=== PATIENT | female | born 1935 | race Caucasian/White ===

== ENCOUNTER 2017-01-11 12:43 | Observation (INO) | payer OTHER, BC ==
--- NOTE | 2017-01-11 12:57 | CPEKG ---
Heart Rate: 84 RR Interval: 714 P-R Interval: 176 QRSD Interval: 118 QT Interval: 368 QTC Interval: 436 P [place]: 81 QRS [place]: -33 T Wave [place]: 98 EKG Severity - ABNORMAL ECG - EKG Impression: SINUS RHYTHM EKG Impression: PROBABLE LEFT ATRIAL ABNORMALITY EKG Impression: INCOMPLETE LEFT BUNDLE BRANCH BLOCK EKG Impression: LVH WITH SECONDARY REPOLARIZATION ABNORMALITY Electronically Signed By: Neisha Taylor 11-Jan-2017 15:22:19
--- NOTE | 2017-01-11 13:06 | EDPHY ---
H & P Stated Complaint: cp starting last night, left anterior moving substernal, nausa Time Seen by Provider: 01/11/17 13:00 - Personal History Current Tetanus/Diphtheria Vaccine: Unsure Current Tetanus Diphtheria and Acellular Pertussis (TDAP): Unsure - Medical/Surgical History Hx Asthma: No Hx Chronic Respiratory Disease: No Hx Diabetes: No Hx Cardiac Disease: Yes Hx Renal Disease: No Hx Cirrhosis: No Hx Alcoholism: No Hx HIV/AIDS: No Hx Splenectomy or Spleen Trauma: No Other PMH: pmh: anxiety, htn, high cholesterol. psh: none - Social History Smoking Status: Never smoked Constitutional: Initial Vital Signs Temperature (C) 36 C 01/11/17 12:53 Heart Rate 81 01/11/17 12:53 Respiratory Rate 16 01/11/17 12:53 Blood Pressure 178/86 H 01/11/17 12:53 O2 Sat (%) 98 01/11/17 12:53 O2 Delivery Mode Room Air O2 (L/minute) 2 Medical Decision Making - Diagnostics Imaging Results: Imaging Impressions Chest X-Ray 01/11/17 13:31 Impression: 1. Hyperexpanded lungs suggestive of underlying COPD. 2. No active cardiopulmonary disease seen. ED Course/Re-evaluation: CHIEF COMPLAINT: Chest pain HISTORY OF PRESENT ILLNESS: This patient is a 81 y/o female complaining of left-sided chest pain onset around 6:00am this morning. At 7:00, she took her blood pressure medication and noted she was more hypertensive than usual around 150/90. She went back to sleep and woke around 9, and her chest pain had moved to her sternal area. A repeat blood pressure was 169/101. She called her primary care provider's office , and they recommended presentation to emergency department. She endorses nausea which resolved after Zofran administration in the ambulance. She has been on a heart monitor in the past following a fall due to syncope. She recently moved to [place] from [place], and has not followed up with a local paralegal instructor since moving. She denies headache, fever, shortness of breath, vomiting, urinary or bowel complaints, or other associated symptoms. REVIEW OF SYSTEMS: A 10 point review of systems was performed and is negative with the exception of the elements mentioned in the history of present illness. PHYSICAL EXAM: HR, BP, O2 Sat, RR. Temp noted General Appearance: Alert, well hydrated, appropriate, and non-toxic appearing. Head: Atraumatic without scalp tenderness or obvious injury Eyes: Pupils equal, round, reactive to light and accommodation, EOMI, no trauma , no injection. Ears: Clear bilaterally, no perforation, normal landmarks Nose: Atraumatic, no rhinorrhea, clear. Throat: There is no erythema or exudates, no lesions, normal tonsils, mucus membranes moist. Neck: Supple, 2+ carotid upstroke, nontender, no lymphadenopathy. Respiratory: No retractions, no distress, no wheezes, and no accessory muscle use. Lungs are clear to auscultation bilaterally. Cardiovascular: Regular rate and rhythm, no murmurs, rubs, or gallops. Bilateral carotid, radial, dorsalis pedis, and posterior tibial pulses intact. Good capillary refill all extremities. Gastrointestinal: Abdomen is soft, nontender, non-distended, no masses, no rebound, no guarding, no peritoneal signs. Musculoskeletal: Normal active ROM of all extremities, atraumatic. Neurological: Alert, appropriate, and interactive. The patient has normal DTRs and non-focal cranial nerves, motor, sensory, and cerebellar exam. Skin: No rashes, good turgor, no nodules on palpation. Past medical history: Anxiety, Hypertension, Hyperlipidemia, Migraines Past surgical history: Denies Family history: Noncontributory Social history: Recently moved from [place]. DIAGNOSTICS/PROCEDURES/CRITICAL CARE TIME: The 12 lead EKG was interpreted by myself. See hard copy and/or "tracemaster" electronic copy for interpretation. Sinus rhythm, rate 84. ALFREDO, LVH with secondary repolarization abnormality, incomplete LBBB DIFFERENTIAL DIAGNOSIS: The differential diagnosis for the patient's chest pain included but was not limited to myocardial ischemia, pulmonary embolus, chest wall pain, pleural inflammation, and pulmonary infectious causes. MEDICAL DECISION MAKIN81 y/o female presents with chest pain onset this morning around 6am, initially left-sided moving to substernal. Exam unremarkable. Plan for chest x-ray, EKG, labs including CBC, BMP, Troponin, D-dimer, and BNP. EKG shows sinus rhythm, no evidence of ischemic changes. Chest x-ray negative for acute processes, evidence of COPD pattern chronic changes. Labs unremarkable. Troponin and D-dimer negative. Plan to admit for further evaluation of chest pain given possible history of cardiogenic syncope. 14:28 Reassessed patient. Discussed lab reports and imaging results. Discussed the possibility of admission for further cardiac workup including stress test and cardiac consult. The patient's daughter is now at bedside. They both agree with this plan. 14:[address] Feng, hospitalist. He accepts admission to PCU for acute coronary syndrome. - Data Points Laboratory Results: Laboratory Results 01/11/17 12:48 01/11/17 12:48 01/11/17 01/11/17 01/11/17 12:48 12:48 12:48 WBC 5.23 10^3/uL 10^3/uL (3.80-9.50) RBC 5.02 10^6/uL 10^6/uL (4.18-5.33) Hgb 15.7 g/dL g/dL (12.6-16.3) Hct 46.0 % % (38.0-47.0) MCV 91.6 fL fL (81.5-99.8) MCH 31.3 pg pg (27.9-34.1) MCHC 34.1 g/dL g/dL (32.4-36.7) RDW 13.8 % % (11.5-15.2) Plt Count 337 10^3/uL 10^3/uL (150-400) MPV 10.0 fL fL (8.7-11.7) Neut % (Auto) 75.4 % H % (39.3-74.2) Lymph % (Auto) 16.4 % % (15.0-45.0) Harvey % (Auto) 5.5 % % (4.5-13.0) Eos % (Auto) 1.9 % % (0.6-7.6) Baso % (Auto) 0.4 % % (0.3-1.7) Nucleat RBC Rel Count 0.0 % % (0.0-0.2) Absolute Neuts (auto) 3.94 10^3/uL 10^3/uL (1.70-6.50) Absolute Lymphs (auto) 0.86 10^3/uL L 10^3/uL (1.00-3.00) Absolute Monos (auto) 0.29 10^3/uL L 10^3/uL (0.30-0.80) Absolute Eos (auto) 0.10 10^3/uL 10^3/uL (0.03-0.40) Absolute Basos (auto) 0.02 10^3/uL 10^3/uL (0.02-0.10) Absolute Nucleated RBC 0.00 10^3/uL 10^3/uL (0-0.01) Immature Gran % 0.4 % % (0.0-1.1) Immature Gran # 0.02 10^3/uL 10^3/uL (0.00-0.10) D-Dimer < 0.27 ug/mLFEU ug/mLFEU (0.00-0.50) Sodium 137 mEq/L mEq/L (134-144) Potassium 4.5 mEq/L mEq/L (3.5-5.2) Chloride 101 mEq/L mEq/L (97-110) Carbon Dioxide 21 mEq/l L mEq/l (22-31) Anion Gap 15 mEq/L mEq/L (8-16) BUN 19 mg/dL mg/dL (7-23) Creatinine 0.6 mg/dL mg/dL (0.6-1.0) Estimated GFR > 60 Glucose 160 mg/dL H mg/dL (70-100) Calcium 10.3 mg/dL mg/dL (8.5-10.4) Troponin I < 0.012 ng/mL ng/mL (0.000-0.034) NT-Pro-B Natriuret Pep 92 pg/mL pg/mL (0-450) Medications Given: Discontinued Medications Aspirin (Aspirin) 324 mg PO EDNOW ONE Stop: 01/11/17 13:31 Last Admin: 01/11/17 14:37 Dose: Not Given Departure - Departure Disposition: [facility] Inpatient Acute Clinical Impression: Acute coronary syndrome Condition: Fair Referrals: Patient,NotPresent [Unknown] - As per Instructions Report Scribed for: Irvin Retana Report Scribed by: Claudia Sullivan Date of Report: 01/11/17 Time of Report: 14:04
[2017-01-11 13:37] LABS: % IMMATURE GRANULYOCYTES 0.4 % (0.0-1.1); ABSOLUTE IMMATURE GRANULOCYTES 0.02 10^3/uL (0.00-0.10); ADD DIFF? NO; ADD MORPH? NO; ADD SCAN? NO; ATYPICAL LYMPHOCYTE FLAG 0 (0-99); FRAGMENT RBC FLAG 0 (0-99); HEMOGLOBIN 15.7 g/dL (12.6-16.3); LEFT SHIFT FLG 0 (0-99); LIPEMIA HEMOLYSIS FLAG 90 (0-99); MEAN CELL HEMOGLOBIN 31.3 pg (27.9-34.1); MEAN CELL HEMOGLOBIN CONCENTR. 34.1 g/dL (32.4-36.7); MEAN CELL VOLUME 91.6 fL (81.5-99.8); PLATELET CLUMPS FLAG 10 (0-99); PLATELET COUNT 337 10^3/uL (150-400); RED BLOOD CELL COUNT 5.02 10^6/uL (4.18-5.33); RED CELL DISTRIBUTION WIDTH 13.8 % (11.5-15.2)
[2017-01-11 13:44] LABS: ANION GAP 15 mEq/L (8-16); CALCIUM 10.3 mg/dL (8.5-10.4); CARBON DIOXIDE 21 mEq/l (22-31); CHLORIDE 101 mEq/L (97-110); CREATININE 0.6 mg/dL (0.6-1.0); GLOMERULAR FILTRATION RATE > 60; GLUCOSE 160 mg/dL (70-100); POTASSIUM 4.5 mEq/L (3.5-5.2); SODIUM 137 mEq/L (134-144)
[2017-01-11 13:54] LABS: TROPONIN I < 0.012 ng/mL (0.000-0.034)
[2017-01-11] MEDS: ASPIRIN 81 MG CHEWABLE TAB PO ONE ×2 (14:29→14:37)
[2017-01-11] MEDS ORDERED: LORazepam 0.5 MG TAB PO PRN (15:28)
[2017-01-11] MEDS ORDERED: ONDANSETRON DISINTEGRATING 4 MG TAB PO PRN (15:41)
[2017-01-11] MEDS ORDERED: ONDANSETRON 4 MG/2 ML VIAL IVP PRN (15:41)
--- NOTE | 2017-01-11 16:34 | GHP ---
[f rep st] HISTORY AND PHYSICAL DATE OF ADMISSION: 01/11/2017 CHIEF COMPLAINT: Chest pain. HISTORY OF PRESENT ILLNESS: This is a 81-year-old female, who recently relocated from [place] to be close to her son and her daughter. She has no real cardiac history but had an episode of syncope about a year ago with which she was hospitalized. It sounds as though she had Holter monitors placed , had followup with Cardiology but had no real etiology identified. She presents today because of chest pain which started at 6 a.m. She woke up, took her blood pressur e medicine, went back to sleep, and noticed the chest pain at that point. Described as pressure. In itially started on the left side of her chest, radiated to the middle part associated with shortness of breath, some nausea. No lightheadedness, no diaphoresis. She has not really exerted herself sinc e this began. She has a history of hypertension, hyperlipidemia but has never had a stress test. e does not know if she had a left bundle branch block on previous EKGs. PAST MEDICAL/SURGICAL HISTORY: 1. Anxiety. 2. Hypertension. 3. Hyperlipidemia. 4. Migraine. MEDICATIONS: Please see medication reconciliation. ALLERGIES: Sulfa. SOCIAL HISTORY: She quit smoking 50 years ago. She does not drink. She relocated to [place] from [facility] in October. Her son and daughter are involved. FAMILY HISTORY: Parents are . REVIEW OF SYSTEMS: 10-point review of systems is conducted and is negative except per HPI. PHYSICAL EXAMINATION: VITAL SIGNS: Blood pressure 179/84, heart rate 86, respiration rate 16, satur ating 96% on room air. Temperature is 36. GENERAL: The patient is a pleasant female who is resting comfortably. No acute distress. HEENT: Shows to be normocephalic, atraumatic. CARDIOVASCULAR: R egular rate and rhythm. There are no murmurs, rubs, or gallops. PULMONARY: Lungs clear to ausculta tion bilaterally. ABDOMEN: Soft, nontender, nondistended. SKIN: No rash. : No Sanchez. NEUROLO GIC: Shows her to be alert and oriented x3. She is moving all extremities. PSYCHIATRIC: Normal mo od and affect. LABORATORIES: CBC is normal. D-dimer is negative. Bicarb 21. Initial troponin is negative. BNP 9 2. DATA: 1. I discussed this with Dr. Retana in the emergency department. 2. I personally viewed and interpreted her EKG. This shows a left bundle branch block. She is in s inus rhythm. 3. I personally viewed and interpreted her chest x-ray. This shows no acute infiltrate. It shows h yperexpanded lungs. Her heart is not fully caught on this. She has mild calcifications in her aorti c bulb. IMPRESSION AND PLAN: 81-year-old female with chest pain. 1. Chest pain: Dimer negative. Initial troponin negative. EKG with left bundle branch block, uncl ear if new or old. Risk factors include hypertension, hyperlipidemia, and age. Discuss with Surekha angelo who will consult tomorrow. Will order echocardiogram, nuclear stress test, trend troponins. Will attempt to obtain old records given her abnormal EKG. 2. Hypertension: Uncontrolled. If she continues to be this hypertensive, will give her a dose of b eta sejal. She is on quinapril at home and took it this morning. I suspect that there is a compon ent of anxiety exacerbating this. 3. Hyperlipidemia: Check lipids and continue her pravastatin. 4. History of syncope: Do not think this should be worked up further, unclear if it is related at a ll to this event. Try to get her records from [facility] where she was treated in [place]. 5. Code status is full. 6. Venous thromboembolism risk is moderate, will give her Lovenox. /[id number]/MODL
[2017-01-11] MEDS: ACETAMINOPHEN 325 MG TAB PO PRN ×2 (16:54→22:25)
[2017-01-11] MEDS: CYCLOSPORINE 0.05% 1 EACH BOX EACHEYE SCH (20:51)
[2017-01-11] MEDS ORDERED: PRAVASTATIN SODIUM 40 MG TAB PO SCH (21:00)
[2017-01-11] MEDS ORDERED: clonazePAM 0.5 MG TAB PO SCH (22:15)
[2017-01-12 04:28] LABS: % IMMATURE GRANULYOCYTES 0.3 % (0.0-1.1); ABSOLUTE IMMATURE GRANULOCYTES 0.01 10^3/uL (0.00-0.10); ADD DIFF? NO; ADD MORPH? NO; ADD SCAN? NO; ATYPICAL LYMPHOCYTE FLAG 0 (0-99); FRAGMENT RBC FLAG 0 (0-99); HEMATOCRIT 40.2 % (38.0-47.0); HEMOGLOBIN 13.4 g/dL (12.6-16.3); LEFT SHIFT FLG 0 (0-99); LIPEMIA HEMOLYSIS FLAG 80 (0-99); MEAN CELL HEMOGLOBIN 30.9 pg (27.9-34.1); MEAN CELL HEMOGLOBIN CONCENTR. 33.3 g/dL (32.4-36.7); MEAN CELL VOLUME 92.8 fL (81.5-99.8); MEAN PLATELET VOLUME 9.5 fL (8.7-11.7); PLATELET CLUMPS FLAG 0 (0-99); PLATELET COUNT 277 10^3/uL (150-400); RED BLOOD CELL COUNT 4.33 10^6/uL (4.18-5.33); RED CELL DISTRIBUTION WIDTH 13.8 % (11.5-15.2)
[2017-01-12 04:46] LABS: ANION GAP 10 mEq/L (8-16); CALCIUM 9.5 mg/dL (8.5-10.4); CARBON DIOXIDE 25 mEq/l (22-31); CHLORIDE 105 mEq/L (97-110); CHOLESTEROL 172 mg/dL (140-220); CHOLESTEROL/HDL RATIO 3.37 RATIO (1.00-4.44); CREATININE 0.7 mg/dL (0.6-1.0); GLOMERULAR FILTRATION RATE > 60; GLUCOSE 94 mg/dL (70-100); HIGH DENSITY LIPOPROTEIN 51 mg/dL (40-85); LOW DENSITY LIPOPROTEIN 102 mg/dL (80-100); NON-HIGH DENSITY LIPOPROTEIN 121 mg/dL (90-129); POTASSIUM 4.7 mEq/L (3.5-5.2); SODIUM 140 mEq/L (134-144); TRIGLYCERIDE 97 mg/dL (35-135); VERY LOW DENSITY LIPOPROTEINS 19 mg/dL (8-25)
[2017-01-12 04:55] LABS: TROPONIN I 0.015 ng/mL (0.000-0.034)
[2017-01-12] MEDS: ACETAMINOPHEN 325 MG TAB PO PRN ×3 (04:58→16:20)
[2017-01-12] MEDS: CYCLOSPORINE 0.05% 1 EACH BOX EACHEYE SCH (08:17)
[2017-01-12] MEDS ORDERED: FLU VACC QS 2017-18 (3YR+)/PF 0.5 ML SYR (FLUARIX QUAD) IM ONE (08:32)
[2017-01-12] MEDS ORDERED: LISINOPRIL 40 MG TAB PO SCH (09:00)
[2017-01-12] MEDS ORDERED: NON-FORMULARY NEW DRUG (Quinapril Hcl [Accupril 40 Mg] 40 MG) PO SCH (09:00)
[2017-01-12] MEDS ORDERED: ENOXAPARIN 40 MG/0.4 ML SYR SC SCH (09:00)
[2017-01-12] MEDS ORDERED: ASPIRIN EC 81 MG TAB PO SCH (09:00)
[2017-01-12] MEDS ORDERED: ESCITALOPRAM OXALATE 10 MG TAB PO SCH (09:00)
[2017-01-12] MEDS ORDERED: NON-FORMULARY NEW DRUG (Escitalopram Oxalate [Lexapro] 5 MG) PO SCH (09:00)
--- NOTE | 2017-01-12 09:00 | CPEKG ---
Heart Rate: 93 RR Interval: 645 P-R Interval: 184 QRSD Interval: 124 QT Interval: 384 QTC Interval: 478 P [place]: 78 QRS [place]: -26 T Wave [place]: 85 EKG Severity - ABNORMAL ECG - EKG Impression: SINUS RHYTHM EKG Impression: LEFT BUNDLE BRANCH BLOCK Electronically Signed By: Rudy Luevano 16-Jan-2017 08:30:09
[2017-01-12] MEDS ORDERED: REGADENOSON 0.4 MG/5 ML SYR IVP ONE (10:05)
--- NOTE | 2017-01-12 10:51 | PDCARST ---
CAR Stress Test Results Type of Stress Test: Lexiscan stress test Indication: chest pain Description of Procedure: After informed consent was obtained, pt was established to ECG, blood pressure, HR and oximetry monitoring. STRESS EKG AND HEMODYNAMIC DATA. Resting heart rate: 85 BPM. Resting ECG: SR LBBB. Resting blood pressure: 142/60 mmHg. O2 saturation at rest: 92. Peak heart rate: 125 BPM. Peak blood pressure: 146/54 mmHg. Arrhythmias: none. Symptoms: The patient experienced no typical symptoms of angina during stress or recovery. Stress/Infusion ECG: No change in rhythm with no significant ST/T wave changes. LBBB throughout. Stress/infusion O2 saturation: 98% Impression: Uneventful Lexiscan infusion. Conclusion: Await nuclear imaging.
--- NOTE | 2017-01-12 12:53 | ASMTCMCOM ---
CM Note CM Note Notes: 01/12/2017 Case Management Note Met w/pt. Pt recently moved from [place] in October. Son Andi lives in [place] alone, pt reports Anid has Asperger's. Daughter Yvette lives in [place] [phone] and has 2 children, one in college and one younger. Pt lives in [facility] the [facility]. She has housekeeping come every other week. Dolores takes her to the grocery Tues/Thurs at [facility] in [place]. She takes meals in the dining room for lunch and dinner. No case management d/c needs identified. PT to eval later today. Case Management available if needs identified. Case Management d/c poc: Home to [place] with family support and follow up as directed. Date Signed: 01/12/2017 12:52 PM Electronically Signed By:Jody Calhoun RN
--- NOTE | 2017-01-12 13:52 | ECHO ---
[email or web address] [address] Main: [phone] Fax: Transthoracic Echocardiogram Name: CORTNEY FRIAS MR#: [id number] Study Date: 01/12/2017 Study Time: 01:01 PM Date of : 1935 Age: 81 year(s) Height: 162.6 cm (64 in.) Weight: 49.9 kg (110 lb.) BSA: 1.52 m2 Gender: Female Examination: Echo Indication: Chest Pain Image Quality: Contrast: Requested by: Stevenson Feng BP: 171 mmHg/82 mmHg Heart Rate: Rhythm: Indication: Chest Pain Procedure Staff Grievance Manager: Savana Grant Physician: Ronnie Oden Requesting Provider: Conclusions: Systemic hypertension septal motion consistent with left bundle branch block Normal left ventricular systolic function with ejection fraction of 65% Mild mitral regurgitation Measurements: Chambers Valvular Assessment AV/MV Valvular Assessment TV/PV Normal Normal Normal Name Value Range Name Value Range Name Value Range Ao Mar (MM): 3.1 cm (2.2 cm-3.7 AV Vmax: 1.15 m/s (1 m/s-1.7 TR Vmax: 2.50 mm/s ( - ) cm) m/s) TR PGmax: 25 mmHg ( - ) IVSd (2D): 0.6 cm (0.6 cm-1.1 AV maxP mmHg ( - ) syst. PAP: 30 mmHg ( - ) cm) MV E Vmax: 0.52 m/s ( - ) LVDd (2D): 3.6 cm (3.9 cm-5.3 MV A Vmax: 0.65 m/s ( - ) cm) MV E/A: 0.80 ( - ) LVDs (2D): 2.7 cm (2.1 cm-4 cm) LVPWd (2D): 0.7 cm ( - ) LVEF (MOD4): 63 % (>=55 %) Visual EF: 65 % Continued Measurements: Chambers Valvular Assessment AV/MV Valvular Assessment TV/PV Name Value Name Value Name Value LADs: 3.0 cm MV E/E' Septal: 10.70 CVP (est.): 5 mmHg LADs Lon.4 cm MV E/E' Lateral: 7.30 LA Area: 13.2 cm2 Patient: CORTNEY FRIAS Study Date: 01/12/2017 Page 1 of 2 01:01 PM Findings: Left Ventricle: Normal size left ventricle. LV septal motion consistent with bundle branch block. The ejection fraction is visually estimated to be 65 %. Right Ventricle: Normal size right ventricle. Left Atrium: The left atrium is normal in size. Right Atrium: The right atrium is normal in size. Mitral Valve: The mitral valve is normal in appearance. Mild mitral valve regurgitation is present. Aortic Valve: The aortic valve is normal in appearance and function. Tricuspid Valve: The tricuspid valve appears normal. Mild tricuspid regurgitation is present. The pulmonary artery pressure is normal. Pulmonic Valve: Pulmonary valve not well visualized. Pericardium: No pericardial effusion. (No Signature Object) Patient: CORTNEY FRIAS Study Date: 01/12/2017 Page 2 of 2 01:01 PM [id number]
--- NOTE | 2017-01-12 15:24 | PDDCSUM ---
Discharge Summary Discharge Summary: Dates of service 01/10-01/11/17 Consultations: cardiology Procedures performed: echo, nuc stress test Discharge dx/hospital course: # chest pain: with nuc stress not c/w ischemia, echo without significant abnormalities or new wall motion abnormality. # LBBB: was present in the past from records from OSH, as above # HTN: continued on quinapril and added carvedilol per cards recommendation # HLD: continue statin # hx of syncope dc home f/u with PCP > 35 min spent in dc more than half in coordination of care
--- NOTE | 2017-01-12 15:27 | GCON ---
[f rep st] CONSULTATION CARDIOLOGY CONSULTATION DATE OF CONSULTATION: 01/12/2017 We were asked by Dr. Feng of [facility] to evaluate the patient for her chest pain. HISTORY OF PRESENT ILLNESS: The patient is a 81-year-old, female with past medical history of hypertension, dyslipidemia, anxiety, who is admitted through the emergency department for chest pressure. She reports being under somewhat increased stress recently. She has moved here from [place] and has moved to [facility]. The night prior to her chest pain episode, she reports having a bit of a stressful dinner. She also ate ice cream, which is not usual for her. That night she noted that her heart rate felt more elevated. She was able to sleep and awoke at 7 a.m. to take her antihypertensive, quinapril. She then went back to sleep and started to feel pain in her left breast. She awoke and the pain became more midsternal. She took her blood pressure and it was elevated to 150/100. She checked again after a few minutes and it was still elevated to 160s/100. She called down to the nurse at [facility] and was advised to present to the emergency department. She reports pain has been off and on, is more of a pressure sensation since her admission. She denies any exacerbating or alleviating factors. She has not been noting any shortness of breath, PND, orthopnea, edema. Again, she admits to increased stress, mostly related to moving from her previous home. PAST MEDICAL AND SURGICAL HISTORY: 1. Anxiety. 2. Hypertension. 3. Dyslipidemia. 4. History of migraines. 5. Osteoporosis. 6. Asthma. 7. Vertigo. 8. Possible syncope 1 year ago with resultant fracture to her zygomatic arch and left orbital fracture and left humeral neck fracture. 9. Vulvodynia. OUTPATIENT MEDICATIONS: Include Klonopin, Restasis, Lexapro, Ativan, quinapril , pravastatin, aspirin. ALLERGIES: Sulfites. SOCIAL HISTORY: The patient quit smoking 50 years ago. She does not drink alcohol. She moved from [place] to [place] in October of this year. She is living in independent living at [facility]. FAMILY HISTORY: No sick significant coronary disease noted. REVIEW OF SYSTEMS: As per HPI. A complete 10-point review of systems was obtained and is negative except for what is dictated. PHYSICAL EXAM: VITAL SIGNS: BP of 171/82, heart rate of 97, respirations 20, O2 saturation 93% on room air, temp of 98 degrees Fahrenheit. GENERAL: She is a pleasant female in no apparent distress. HEENT: Head is normocephalic, atraumatic. Eyes are without scleral icterus. Mucous membranes moist. HEART: Regular rate and rhythm. LUNGS: Clear to auscultation. ABDOMEN: Soft with normoactive bowel sounds. SKIN: Warm and dry with no edema. LABORATORY DATA: CBC with WBC 3.82, hemoglobin 13.4, hematocrit 40.2, platelet count of 277. BMP with sodium 140, potassium 4.7, chloride 105, CO2 25, BUN 18, creatinine 0.7, glucose 94. NT-proBNP 92. Triglycerides 97, total cholesterol 172, LDL of 102, HDL of 51. A 12-lead ECG shows sinus rhythm with a left bundle branch block. Echocardiogram from this admission shows EF of 65% with mild mitral regurgitation. 01/12/2017, nuclear stress test shows EF of 80% with infarct suspected involving septal wall which is likely related to her left bundle. I have reviewed 35 pages from hospitalization in [place] from last year for possible syncope. She had an echo carotid Dopplers. These were both grossly normal. She also had a left bundle branch block present at that time. IMPRESSION AND PLAN: The patient is a 81-year-old female admitted with chest pressure. She has had a left bundle branch block that has been present for at least over a year. 1. Chest pressure. Likely noncardiac. She does mention that she has previously been diagnosed with hiatal hernia. She has had a Lexiscan MPI that show findings consistent with LBBB without ischemia present. She may follow up with her primary care physician to address noncardiac causes of chest pain the outpatient setting. 2. Left bundle branch block. This has been noted in a previous ECG one year ago. 3. Hypertension. Blood pressures have been suboptimally controlled. This may be related to her anxiety disorder and to being admitted in the hospital. However, we would like for her to add another antihypertensive. She may start carvedilol 3.125 b.i.d. for blood pressure and possibly for heart rate control. /[id number]/MODL MTDD
[2017-01-12 15:52] VITALS: BP 142/75; PULSE 89; RESP 16; TEMP 97.8; O2SAT 90
[2017-01-12] MEDS ORDERED: CYCLOSPORINE 0.05% 1 EACH BOX EACHEYE SCH (17:00)
--- NOTE | 2017-01-13 11:11 | ASDISCHSUM ---
Discharge Information Plan Status:Home with No Needs Medically Cleared to Leave:01/13/2017 Discharge Date:01/12/2017 05:35 PM CM D/C Disposition: ADT D/C Disposition:Home, Routine, Self-Care Projected Discharge Date:01/13/2017 12:00 AM Transportation at D/C: Discharge Delay Reason: Follow-Up Date:01/13/2017 12:00 AM Discharge Slot: Final Diagnosis: Placement Information Patient Contact Information Contact Name:VIBHA Relationship:Daughter Address: Work Phone: City: [facility] Phone: State/[employer] Code: Email: Financial Information Financial Class: Primary Plan Desc:MEDICARE OUTPATIENT Primary Plan Number:[id number] Secondary Plan Desc: OUT OF STATE INDEMNITY Secondary Plan Number:[id number] Assessment Information BC CM Progress Note CM Note CM Note Notes: 01/12/2017 Case Management Note Met w/pt. Pt recently moved from [place] in October. Son Andi lives in [place] alone, pt reports Andi has Asperger's. Daughter Yvette lives in [place] [phone] and has 2 children, one in college and one younger. Pt lives in [facility]. She has housekeeping come every other week. Dolores takes her to the grocery [employer] at [facility] in [place]. She takes meals in the dining room for lunch and dinner. No case management d/c needs identified. PT to zoe later today. Case Management available if needs identified. Case Management d/c poc: Home to [place] with family support and follow up as directed. Date Signed: 01/12/2017 12:52 PM Electronically Signed By:Jody Calhoun RN Intervention Information Intervention Type:*AZUL-Signed Date of Service:01/12/2017 09:33 AM Patient Type:Observation Staff Member:Kellie Kovacs Hours: Discipline: Severity: Comment:
== END 2017-01-12 17:35 | disposition home or self-care (01) ==
LOC: INTOOBSV 14:38 → F2W 16:09
PROVIDERS: ADMIT Student in an Organized Health Care Education/Training Program; ATTEND Internal Medicine
PROC: B246ZZZ Ultrasonography of Right and Left Heart (ICD-10-PCS; principal; 2017-01-12)
DX: R07.9 Chest pain, unspecified (principal); I44.7 Left bundle-branch block, unspecified; I10 Essential (primary) hypertension; E78.5 Hyperlipidemia, unspecified; R55 Syncope and collapse; R42 Dizziness and giddiness; F41.9 Anxiety disorder, unspecified; G43.909 Migraine, unspecified, not intractable, without status migrainosus; M81.0 Age-related osteoporosis without current pathological fracture; J45.909 Unspecified asthma, uncomplicated; Z87.891 Personal history of nicotine dependence; Z23 Encounter for immunization
CPT/HCPCS: 71020; 78452; 90686; 93005; 93017; 93306; 97161; A9500; G0008; G0378; G8978; G8979; G8980; J2785

== ENCOUNTER → 2018-01-04 | Outpatient (CLI) | payer OTHER, BC ==
[~2018-01-04] MED LIST: GADOBUTROL 10 ML VIAL IVP ONE
== END ==
LOC: FIMAGING 12:04
PROVIDERS: ATTEND Psychiatry & Neurology Neurology
DX: R51 Headache (principal); R20.2 Paresthesia of skin; R20.0 Anesthesia of skin
CPT/HCPCS: 70553; A9585; 82565-PO